=== PATIENT | male | born 1990 | race Two or more races ===

== ENCOUNTER 2018-05-24 13:54 | Emergency (ER) | payer SELFPAY ==
[~2018-05-24] VITALS: Ht 162.6 cm; Wt 67.6 kg
[2018-05-24 15:02] VITALS: BP 181/93
[2018-05-24] MEDS: DIPHTH,PERTUSS(ACELL),TET TOX 0.5 ML DISP.SYRIN. VAX IM ONE (15:15)
--- NOTE | 2018-05-24 15:19 | PHYS DOC ---
Past Medical History Past Medical History: No Pertinent History Past Surgical History: No Surgical History Alcohol Use: None Drug Use: None Adult General Chief Complaint Chief Complaint: LACERATION/AVULSION HPI HPI Patient is a 28 year old male who presents with working on his jeep yesterday and was putting it back down in the foot hit him on his right top of the head towards the forehead area treating a 4 cm laceration. This happened last night at 1800. Patient denies LOC, nausea, vomiting, dizziness, visual changes. Patient denies any pain at this time. Patient states he takes no medications daily as no known drug allergies. Review of Systems Review of Systems Constitutional: Denies fever or chills [] Eyes: Denies change in visual acuity, redness, or eye pain [] HENT: Denies nasal congestion or sore throat [] Respiratory: Denies cough or shortness of breath [] Cardiovascular: No additional information not addressed in HPI [] GI: Denies abdominal pain, nausea, vomiting, bloody stools or diarrhea [] : Denies dysuria or hematuria [] Musculoskeletal: Denies back pain or joint pain [] Integument: Denies rash. Right frontal scalp laceration. Neurologic: Denies headache, focal weakness or sensory changes [] Endocrine: Denies polyuria or polydipsia [] All other systems were reviewed and found to be within normal limits, except as documented in this note. Current Medications Current Medications Current Medications Medications (Trade) Dose Ordered Sig/Ladarius Start Time Stop Time Status Last Admin Dose Admin Diphtheria/ Tetanus/Acell Pertussis (Boostrix) 0.5 ml ONCE ONCE 05/24/18 15:15 05/24/18 15:16 DC 05/24/18 15:15 0.5 ML Allergies Allergies Allergies Coded Allergies Type Severity Reaction Last Updated Verified No Known Drug Allergies 05/24/18 No Physical Exam Physical Exam Constitutional: Well developed, well nourished, no acute distress, non-toxic appearance. [] HENT: Normocephalic, atraumatic, bilateral external ears normal, oropharynx moist, no oral exudates, nose normal. [] Eyes: PERRLA, EOMI, conjunctiva normal, no discharge. [] Neck: Normal range of motion, no tenderness, supple, no stridor. [] Cardiovascular:Heart rate regular rhythm, no murmur [] Lungs & Thorax: Bilateral breath sounds clear to auscultation [] Abdomen: Bowel sounds normal, soft, no tenderness, no masses, no pulsatile masses. [] Skin: Right frontal scalp 4cm laceration with approximated edges. Warm, dry, no erythema, no rash. [] Back: No tenderness, no CVA tenderness. [] Extremities: No tenderness, no cyanosis, no clubbing, ROM intact, no edema. [] Neurologic: Alert and oriented X 3, normal motor function, normal sensory function, no focal deficits noted. [] Psychologic: Affect normal, judgement normal, mood normal. [] Current Patient Data Vital Signs Vital Signs Date Time Temp Pulse Resp B/P (MAP) Pulse Ox O2 Delivery O2 Flow Rate FiO2 05/24/18 15:02 97.8 58 17 181/93 (122) 98 Room Air 97.8 EKG EKG [] Radiology/Procedures Radiology/Procedures [] Course & Med Decision Making Course & Med Decision Making Patient is a 28 year old male who presents with working on his [place] yesterday and was putting it back down in the foot hit him on his right top of the head towards the forehead area treating a 4 cm laceration. This happened last night at 1800. Patient denies LOC, nausea, vomiting, dizziness, visual changes. Patient denies any pain at this time. Patient states he takes no medications daily as no known drug allergies. Patient states he does not remember when the last tetanus shot. Patient will received a Boostrix in the ED today. The edges of the wound are approximated and starting to heal together. There is no bleeding or oozing or redness. There are no signs of infection. Patient's states that they have cleaned it out with peroxide yesterday and today she has been applying Neosporin to it. I had Dr Gill examine this patient and he agrees that this patient should have steri strips in place and the Patient will be put on a antibiotic. Patient is stable and in no distress. Patient to follow up with primary care or here in the ED for wound check in 3 to 4 days and sooner for signs of infection. Staff Physician Addendum: I was working in the ER during the course of this patient's visit. I was available for consultation as needed, I did briefly evaluate this patient. [] Dragon Disclaimer Dragon Disclaimer This electronic medical record was generated, in whole or in part, using a voice recognition dictation system. Departure Departure Impression: Primary Impression: Laceration Disposition: HOME, SELF-CARE Condition: STABLE Referrals: NO PCP (PCP) Patient Instructions: Laceration Care, Adult Additional Instructions: Follwo up with your primary care or return to the ED for wound check in 3-4 days or sooner if signs of infection. Scripts Cephalexin (CEPHALEXIN) 500 Mg Tablet 1 TAB PO BID, #20 TAB Prov: LAVINIA CAMARENA APRN 05/24/18 LAVINIA CAMARENA APRN May 24, 2018 15:18 VIVIANE GILL MD May 27, 2018 01:45
[2018-05-24] MEDS ORDERED: CEPH500T PO (15:45)
== END 2018-05-24 16:33 | disposition home or self-care (01) ==
LOC: ER 13:54 → EDBD 13:54 → ER 16:33
DX: S01.01XA Laceration without foreign body of scalp, initial encounter (principal); W22.8XXA Striking against or struck by other objects, initial encounter; Y93.89 Activity, other specified; Y92.89 Other specified places as the place of occurrence of the external cause; Y99.8 Other external cause status
CPT/HCPCS: 90471; 90715; 99283